=== PATIENT | male | born 2000 | race African-American/Black ===

== ENCOUNTER 2023-10-09 04:16 | Emergency (ER) | payer OTHER ==
[~2023-10-09] VITALS: Ht 177.8 cm; Wt 74.8 kg
[2023-10-09] MEDS ORDERED: ONDANSETRON ODT 4 MG TAB.RAPDIS SL ONE (05:15)
[2023-10-09] MEDS ORDERED: PSEUDOEPHEDRINE HCL 30 MG TABLET PO ONE (05:15)
[2023-10-09] MEDS ORDERED: HYDROMORPHONE 1 MG/1 ML DISP.SYRIN IM ONE (05:15)
[2023-10-09] MEDS ORDERED: AMOXICILLIN-CLAVUL 875-125MG TABLET PO ONE (05:15)
[2023-10-09] MEDS ORDERED: ONDANSETRON ODT 4 MG TAB.RAPDIS ONE (05:19)
[2023-10-09] MEDS ORDERED: PSEUDOEPHEDRINE HCL 30 MG TABLET ONE (05:20)
[2023-10-09] MEDS ORDERED: AMOXICILLIN-CLAVUL 875-125MG TABLET ONE (05:20)
[2023-10-09] MEDS ORDERED: HYDROMORPHONE 1 MG/1 ML DISP.SYRIN ONE (05:20)
[2023-10-09] MEDS ORDERED: HYDR-3980 PO (05:28)
[2023-10-09] MEDS ORDERED: ONDA4TAB11 PO (05:28)
[2023-10-09] MEDS ORDERED: AMOX-430 PO (05:28)
[2023-10-09] MEDS ORDERED: PSEU120T99 PO (05:28)
[2023-10-09] MEDS ORDERED: LORA10TA7 PO (05:28)
[2023-10-09 06:14] VITALS: BP 125/71; TEMP 98.5; O2SAT 100
== END 2023-10-09 06:20 | disposition home or self-care (01) ==
LOC: ER 04:26
DX: J32.9 Chronic sinusitis, unspecified (principal); J45.909 Unspecified asthma, uncomplicated; Z90.89 Acquired absence of other organs
CPT/HCPCS: 99284; 96372; J1170; A4606; A4663; Q0162